=== PATIENT | male | born 1980 | race Caucasian/White ===

== ENCOUNTER → 2020-10-31 | Outpatient (CLI) | payer BC, OTHER | LOC: LAB 13:44 | PROVIDERS: ATTEND Orthopaedic Surgery Sports Medicine | DX: Z01.812 Encounter for preprocedural laboratory examination (principal); Z20.822 Contact with and (suspected) exposure to COVID-19 ==

== ENCOUNTER → 2020-11-05 | Day surgery (SDC) | payer BC, OTHER ==
[~2020-11-05] VITALS: Ht 185.4 cm; Wt 95.3 kg
[2020-11-05 08:37] VITALS: BP 128/79
--- NOTE | 2020-11-25 10:14 | O ---
[address] [address] OPERATIVE REPORT Name: [facility] Room #: REG [facility]#: [id number] Admission: 11/05/20 Attend Phys: John Plummer MD Discharge: Date of : 78 Report #: [id number] THIS REPORT FOR: cc: KUSUM - No family physician/PCP KUSUM - No family physician/PCP John Plummer MD ~ DOC #: [id number] John Plummer MD DATE OF SERVICE: 11/05/2020 SERVICE: Orthopedics. FACILITY: [place]. SURGEON: John Plummer MD BILINGUAL MANAGER: Sonal Archuleta NP INDICATION FOR BILINGUAL MANAGER: Extremity positioning, suture management, arthroscope management, assistance with repair. PREOPERATIVE DIAGNOSES: 1. Right hip pain. 2. Right hip femoral acetabular impingement. 3. Right hip labral tear. POSTOPERATIVE DIAGNOSES: 1. Right hip pain. 2. Right hip femoral acetabular impingement. 3. Right hip labral tear. 4. Right hip chondromalacia. PROCEDURES PERFORMED: 1. Right hip arthroscopic labral repair. 2. Right hip arthroscopic Cam osteochondroplasty. 3. Right hip arthroscopic subspine decompression. 4. Right hip arthroscopic limited acetabular chondroplasty. COMPLICATIONS: None. DRAINS: None. SPECIMENS: None. ANESTHESIA: General with regional. [address] [address] OPERATIVE REPORT Name: [place] Room #: REG [facility] Kathy#: [id number] Admission: 11/05/20 Attend Phys: John Plummer MD Discharge: Date of : 78 Report #: [id number] FINDINGS: 1. 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 2. Detached anterior labrum tear with chondrolabral junction separation, labral repair with AGRIMAPS CinchLock suture anchor x2. 3. Limited chondroplasty performed at the anterior acetabular chondral labral junction with no full thickness lesions noted. 4. Subspine decompression requiring additional capsular dissection bony work performed. 5. Capsular repair with #2 Vicryl x4. HISTORY: The patient is a 40-year-old gentleman with a history of persistent progressive right hip pain that had been present for many months. He had failed extensive conservative measures including rest, activity modifications, physical therapy, oral medicines, modalities and he had positive pain response with intraarticular injection. He was noted on physical examination to have decrease in internal rotation and positive impingement findings. He had pain that was affecting his activities of daily living with some giveaway symptoms and he was indicated for surgical treatment based on this, as well as the x-rays. He had preoperative x-rays showed combined type femoral acetabular impingement with both intra and extraarticular components. The alpha angle was approximately 75 degrees consistent with Cam impingement and then he had a small crossover sign on the pelvis x-ray secondary to a prominent anterior inferior iliac spine, which was seen on the false profile view and was the indication of subspine impingement. MRI showed a labral tear. Risks, benefits, alternatives and indications of surgery were discussed with him in detail. Risks include but not limited to pain, bleeding, infection, injury to nerves or blood vessels, persistent pain despite surgical intervention, failure of any repair, progression of preexisting chondral injury, stiffness, need for further surgery as well as complications related to anesthesia. Despite the risks, he wished to proceed. DESCRIPTION OF PROCEDURE: After right lower extremity was correctly identified in the preoperative holding area as the operative extremity, the patient underwent regional nerve block. He was then taken to the operating room where general anesthesia was induced without complications. He was padded appropriately. Prophylactic antibiotics were administered at appropriate time. C-arm was used to identify the extent of the Cam deformity evaluating the femoral head and neck junction. Then, the right hip was prepped and draped in standard sterile fashion. A timeout procedure performed. Traction was applied. Standard anterolateral viewing portal was established under fluoroscopy. The anteromedial working portal was established as well. There was synovitis present with capsular erythema and these will be the reasons for continuous passive motion machine used postoperatively in order to reduce the risk of scarring and adhesions as these can be reasons for reoperation in this patient [address] [address] OPERATIVE REPORT Name: [facility] Room #: REG [facility] M.R.#: [id number] Admission: 11/05/20 Attend Phys: John Plummer MD Discharge: Date of : 78 Report #: [id number] population. Transverse capsulotomy was performed. The anterior labral tear was clearly visible as soon as the scope was placed into the hip and the anterior labrum was sitting on the femoral head over a small radius because it was detached tear, the capsule was reflected off the dorsal side of the labrum allowing access to the acetabular side pathology. The subspine lesion was then dissected free with the cautery and the shaver until it was exposed and then a bur was used to perform a subspine decompression in standard fashion and then the bur was used to gently decorticate the acetabular rim to create a fresh bleeding surface for labral refixation and repair. A total of 2 Kellie CinchLock suture anchors were utilized and this successfully reduced the labrum and securely fixed it. At this point, the shaver were used to debride some residual flap tearing of the superficial fibers of labrum at the chondral labral junction as well as some articular cartilage chondromalacia. After this was completed, traction was let down. The hip was flexed up. Attention was turned towards the peripheral compartment. Transverse capsulotomy was extended down the neck in a T fashion allowing access to the entire Cam deformity and then the bur was used to perform a Cam osteoplasty in typical fashion. I removed the instruments, brought C-arm in, identified some additional bone that needed to be resected in terms of the overall depth of the resection, then placed the instruments back in the hip and then used the bur to complete the Cam osteoplasty. The bony debris was flushed out of the hip. The instruments were removed. C-arm again brought in and I was happy with the appearance of the Cam resection at this point. The instruments were placed back into the hip. The T-shaped capsulotomy was closed with a total of four #2 Vicryl sutures and the instruments were removed. Portal sites were closed. Sterile dressing was applied. The patient was awakened from anesthesia and taken to recovery room in stable condition. No complications. All counts were correct. John Plummer MD MPM/KDA <ELECTRONICALLY SIGNED> By: John Plummer MD 11/25/20 [id number] John Plummer MD /nt
== END | disposition home or self-care (01) ==
LOC: OR 07:45
PROVIDERS: ATTEND Orthopaedic Surgery Sports Medicine
DX: M25.551 Pain in right hip (principal); M25.851 Other specified joint disorders, right hip; S73.101A Unspecified sprain of right hip, initial encounter; K21.9 Gastro-esophageal reflux disease without esophagitis; Z98.890 Other specified postprocedural states; Z79.899 Other long term (current) drug therapy; X58.XXXA Exposure to other specified factors, initial encounter; Y93.89 Activity, other specified; Y92.89 Other specified places as the place of occurrence of the external cause; Y99.8 Other external cause status
CPT/HCPCS: 50010; 50101; 50386; 50403; 51320; 51538; 52001; 52282; 52304; 52313; 56524; 56527; 57103; 58108; 58273; 58274; 58558; 58560; 58561; 58562; 58563; 58564; 58634; 62110; 62900; 70005